=== PATIENT | male | born 1975 | race Caucasian/White ===

== ENCOUNTER 2021-06-17 12:30 | Emergency (ER) | payer MEDICAID ==
[~2021-06-17] VITALS: Ht 180.3 cm; Wt 104.3 kg
[2021-06-17 12:30] VITALS: BP_SYST 155
--- NOTE | 2021-06-17 12:30 | NUR ---
BROUGHT IN BY [facility], PLACED IN BED #6 AND TRIAGED. REPORT GIVEN TO MELODY
--- NOTE | 2021-06-17 12:35 | NUR ---
MD JOE AT BEDSIDE ASSESSING PT.
--- NOTE | 2021-06-17 13:01 | NUR ---
AWAITING US. PT IS STABLE IN [facility]
[2021-06-17 13:35] LABS: BILIRUBIN,URINE NEGATIVE (NEGATIVE); BLOOD, URINE NEGATIVE (NEGATIVE); CLARITY/URINE CLEAR (CLEAR); COLOR,URINE YELLOW (YELLOW); GLUCOSE,URINE NEGATIVE (NEGATIVE); KETONES,URINE 1+ (NEGATIVE); LEUKOCYTE ESTERASE ,URINE NEGATIVE (NEGATIVE); NITRITE, URINE NEGATIVE (NEGATIVE); PROTEIN URINE NEGATIVE (NEGATIVE); UROBILINOGEN,URINE 0.2 (0.2-1.0)
--- NOTE | 2021-06-17 14:21 | NUR ---
BACK FROM CT.
[2021-06-17] MEDS ORDERED: HYDROcodone/ACETAMIN 10-325 MG TAB PO ONE (14:30)
[2021-06-17] MEDS ORDERED: IBUPROFEN 800 MG TABLET PO ONE (14:30)
[2021-06-17] MEDS ORDERED: HYDR-3917 PO (14:57)
[2021-06-17] MEDS ORDERED: IBUP-1971 PO (14:57)
--- NOTE | 2021-06-17 15:11 | NUR ---
Patient given written and verbal discharge instructions and verbalizes understanding. ER MD discussed with patient the results and treatment provided. Patient in stable condition. ID arm band removed. Rx of NORCO, MOTRIN given. Patient educated on pain management and to follow up with PMD. Pain Scale 0/10. Opportunity for questions provided and answered. Medication side effect fact sheet provided.
[2021-06-17 15:12] VITALS: BP_SYST 145
== END 2021-06-17 15:11 | disposition home or self-care (01) ==
LOC: SED 12:30
DX: N50.811 Right testicular pain (principal)
CPT/HCPCS: 76376; 76870-TC; 81003; 99285